=== PATIENT | female | born 1965 | race African-American/Black ===

== ENCOUNTER 2017-01-24 15:59 | Emergency (ER) | payer SELFPAY ==
[~2017-01-24] VITALS: Ht 167.6 cm; Wt 81.0 kg
[2017-01-24] MEDS ORDERED: IBUPROFEN 800MG TABLET PO ONE (16:30)
[2017-01-24] MEDS ORDERED: HYDROCODONE/ACETAMINOPHEN 5/325MG TABLET PO ONE (16:30)
[2017-01-24 18:12] VITALS: BP 205/128
== END 2017-01-24 19:09 | disposition home or self-care (01) ==
LOC: ER 16:19
DX: S89.91XA Unspecified injury of right lower leg, initial encounter (principal); I10 Essential (primary) hypertension; E11.9 Type 2 diabetes mellitus without complications; V03.99XA Pedestrian with other conveyance injured in collision with car, pick-up truck or van, unspecified whether traffic or nontraffic accident, initial encounter; Y93.89 Activity, other specified; Y99.8 Other external cause status; Y92.410 Unspecified street and highway as the place of occurrence of the external cause
CPT/HCPCS: 73562; 81025; 99284; L1830; Z7610